=== PATIENT | male | born 1965 | race Caucasian/White ===

== ENCOUNTER → 2017-05-02 | Day surgery (SDC) | payer OTHER ==
[~2017-05-02] VITALS: Ht 165.1 cm; Wt 64.9 kg
[~2017-05-02] MED LIST: COL100 PO; NOR10T PO
[2017-05-02 06:37] VITALS: BP 103/73
[2017-05-02 10:49] VITALS: BP 110/64
== END | disposition home or self-care (01) ==
LOC: DS 06:18 → GI 07:30 → OR 07:30
PROVIDERS: Internal Medicine Gastroenterology
PROC: 0DJD8ZZ Inspection of Lower Intestinal Tract, Via Natural or Artificial Opening Endoscopic (ICD-10-PCS; principal; 2017-05-02 07:30)
DX: K59.00 Constipation, unspecified (principal); C43.9 Malignant melanoma of skin, unspecified; Z98.0 Intestinal bypass and anastomosis status
CPT/HCPCS: 45378; J1200; J1610; J2250; J2310; J3010; J3490